=== PATIENT | male | born 1975 | race Hispanic/Latino ===

== ENCOUNTER 2019-04-23 13:52 | Outpatient (CLI) | payer OTHER ==
--- NOTE | 2019-04-23 15:46 | Cat Scan Report ---
CT LUMBAR SPINE: 04/23/2019 INDICATION / CLINICAL INFORMATION: LUMBAR RADICULAPATHY. COMPARISON: None available. FINDINGS: Unenhanced CT images of the lumbar spine were obtained. Images are evaluated in the axial, coronal, and sagittal planes. There is no evidence of acute traumatic injury. Vertebral body alignment is normal. LEVEL BY LEVEL ANALYSIS: L5-S1: Mild diffuse disc bulging, slightly more pronounced on the right. There is some narrowing of the right neural foramen present. L4-5: Minimal diffuse disc bulging. L3-4: Unremarkable. L2-3: Unremarkable. PARASPINAL STRUCTURES: Unremarkable. IMPRESSION: Degenerative disc changes with right-sided foraminal narrowing noted at L5-S1. All CT scans at this location are performed using dose reduction to ALARA by means of automated expos ure control. Signer Name: Brock Graff MD Signed: 04/23/2019 3:41 PM Workstation Name: [id number]
== END 2019-04-23 13:53 | disposition home or self-care (01) ==
LOC: CT 13:52
PROVIDERS: ATTEND Internal Medicine
DX: M48.07 Spinal stenosis, lumbosacral region (principal); M47.817 Spondylosis without myelopathy or radiculopathy, lumbosacral region
CPT/HCPCS: 72131